=== PATIENT | male | born 1960 | race Caucasian/White ===

== ENCOUNTER 2019-03-25 00:24 | Emergency (ER) | payer BC ==
[~2019-03-25] VITALS: Ht 185.4 cm; Wt 99.8 kg
[2019-03-25 00:28] VITALS: Ht 185.4 cm; Wt 99.8 kg
[2019-03-25 01:15] VITALS: BP 139/91
== END 2019-03-25 01:58 | disposition left against medical advice (07) ==
LOC: ED 00:24
DX: R07.89 Other chest pain (principal); R06.02 Shortness of breath; E83.119 Hemochromatosis, unspecified
CPT/HCPCS: 83880; J7030